=== PATIENT | female | born 1960 | race Caucasian/White ===

== ENCOUNTER 2023-10-15 11:36 | Outpatient (CLI) | payer OTHER, SELFPAY | END 2023-10-15 11:37 | disposition home or self-care (01) | PROVIDERS: PCP Family Medicine; Visit Provider Family Medicine | DX: Z01.818 Encounter for other preprocedural examination (principal); D72.819 Decreased white blood cell count, unspecified; K50.90 Crohn's disease, unspecified, without complications | CPT/HCPCS: 80053; 86803 ==

== ENCOUNTER 2023-11-04 13:42 | Outpatient (CLI) | payer OTHER, SELFPAY | END 2023-11-04 13:43 | disposition home or self-care (01) | PROVIDERS: PCP Family Medicine; Visit Provider Family Medicine | DX: R01.1 Cardiac murmur, unspecified (principal); I35.1 Nonrheumatic aortic (valve) insufficiency; I34.0 Nonrheumatic mitral (valve) insufficiency | CPT/HCPCS: 93306 ==

== ENCOUNTER 2024-07-14 08:30 | Outpatient (CLI) | payer OTHER, SELFPAY | END 2024-07-14 08:31 | disposition home or self-care (01) | LOC: NFLDREF 07-15 09:29 | PROVIDERS: PCP Family Medicine; Referring Provider Family Medicine; Visit Provider Family Medicine | DX: Z01.818 Encounter for other preprocedural examination (principal); Z01.810 Encounter for preprocedural cardiovascular examination; F39 Unspecified mood [affective] disorder; G43.009 Migraine without aura, not intractable, without status migrainosus; R73.03 Prediabetes; E66.01 Morbid (severe) obesity due to excess calories; I67.1 Cerebral aneurysm, nonruptured | CPT/HCPCS: 87086 ==

== ENCOUNTER 2024-08-22 09:02 | Outpatient (CLI) | payer OTHER, SELFPAY | END 2024-08-22 09:03 | disposition home or self-care (01) | LOC: FRMREF 09:04 | PROVIDERS: PCP Family Medicine; Visit Provider Family Medicine | DX: Z48.89 Encounter for other specified surgical aftercare (principal); R73.03 Prediabetes | CPT/HCPCS: 80048 ==

== ENCOUNTER 2025-01-24 11:30 | Outpatient (CLI) | payer OTHER, SELFPAY | END 2025-01-24 11:31 | disposition home or self-care (01) | PROVIDERS: PCP Family Medicine; Visit Provider Family Medicine | DX: Z00.01 Encounter for general adult medical examination with abnormal findings (principal); R73.03 Prediabetes; K50.90 Crohn's disease, unspecified, without complications; F39 Unspecified mood [affective] disorder; Z13.6 Encounter for screening for cardiovascular disorders | CPT/HCPCS: 80053; 80061; 82306; 84443 ==

== ENCOUNTER 2025-02-01 15:11 | Outpatient (CLI) | payer OTHER, SELFPAY ==
--- NOTE | 2025-02-01 15:30 | CRLHL7_ITS ---
For Patients: As a result of the Century Cures Act, medical imaging exams and procedure reports are released immediately into your electronic medical record. You may view this report before your referring provider. If you have questions, please contact your health care provider. DXA BONE MINERAL DENSITY STUDY Current height (in): 63. Weight (lb): 233. Menopause age: 44. Ethnicity: White. 1. Have you had a previous hip or vertebral fracture? No. 2. Have you had any fractures during your adult life which did not result from significant trauma (e.g., auto accident)? No. 3. Did either of your parents have a hip fracture? No. 4. Do you smoke? No. 5. Have you ever taken Glucocorticoids? Yes. 6. Do you have rheumatoid arthritis? No. 7. Do you have secondary osteoporosis? No. 8. Do you drink 3 or more alcoholic drinks per day? No. 9. Are you being treated for osteoporosis? No. 10. Have you ever taken any of the following medications: Actonel, Evista, Fosamax, Miacalcin, Reclast, Boniva, Forteo, HRT (i.e. estrogen/hormone therapy), Protelos, Prolia, Vitamin D, Calcium, other ??? please specify. ANSWER: Yes, Vitamin D and HRT. 11. Do you have any of the following medical conditions: Anorexia or bulimia, asthma or emphysema, end stage renal disease, hyperparathyroidism, any seizure disorders, cancer, inflammatory bowel diseases, hysterectomy, other ??? please specify. ANSWER: Yes, Inflammatory bowel disease and Hysterectomy. 12. What was your maximum height (inches)? 63. 13. Do you perform weight bearing exercise regularly? Yes. 14. Do you regularly consume dairy products? Yes. 15. Do you drink caffeinated beverages? No. 16. At what age did your period start? 11. 17. Are you premenopausal? No. 18. How many full term pregnancies have you had? 3. 19. Have you ever missed your period for more than 6 months in a row (not including or menopause)? No. TECHNIQUE: Bone mineral density study was performed using the [facility]. FINDINGS: The results of the study expressed as bone mineral density (BMD) are as follows: Neck Right: BMD: 0.853 g/cm2. T-score: 0.0. Z-score: 1.6. Total Right: BMD: 1.132 g/cm2. T-score: 1.6. Z-score: 2.8. Radius Left 33%: BMD: 0.570 g/cm2. T-score: -2.1. Z-score: -0.4. IMPRESSION: Normal bone density. Paulo Moses M.D. Body/Diagnostic Radiologist [email or web address] MANINDER/sadie / DW/Dictated by: Paulo Moses MD @ 02/03/2025 12:57:00 PM (Electronically Signed)
== END 2025-02-01 15:12 | disposition home or self-care (01) ==
LOC: RAD 15:12
PROVIDERS: PCP Family Medicine; Visit Provider Family Medicine
DX: Z13.820 Encounter for screening for osteoporosis (principal); R73.03 Prediabetes
CPT/HCPCS: 77080

== ENCOUNTER 2025-03-09 13:34 | Outpatient (CLI) | payer OTHER, SELFPAY ==
[2025-03-09 22:04] LABS: Alanine Aminotransferase* 66 U/L (4-35)
== END 2025-03-09 13:35 | disposition home or self-care (01) ==
LOC: NPINS 13:36
PROVIDERS: PCP Family Medicine; Visit Provider Pharmacist Pharmacotherapy
DX: A31.9 Mycobacterial infection, unspecified (principal)
CPT/HCPCS: 84460

== ENCOUNTER 2025-03-29 09:46 | Outpatient (CLI) | payer OTHER, SELFPAY ==
[2025-03-29 14:07] LABS: Basophils Percent Auto 0.5 % (0.0-3.0); Eosinophils Percent Auto 1.5 % (0.0-7.0); Hematocrit 37.4 % (33.0-51.0); Immature Granulocytes Pct Auto 0.3 %; Lymphocytes Percent Auto 44.8 % (20-44); Mean Corpuscular HGB Conc 32 gm/dL (32-36); Mean Corpuscular Hemoglobin 33 pg (26-34); Mean Corpuscular Volume 104 fL (80-100); Monocytes Percent Auto 6.8 % (0.0-11.0); Neutrophils Percent Auto 46.1 % (42.0-72.0); Platelet Count* 202 K/uL (140-440); RDW Coefficient of Variation % 14.1 % (11.5-15.5); Red Blood Count 3.59 m/uL (4.00-5.20); White Blood Count* 3.95 K/uL (4.50-11.00)
[2025-03-29 14:12] LABS: Slide Review Reflex No
[2025-03-29 14:37] LABS: Albumin* 4.1 g/dL (3.3-5.0); Potassium* 4.5 mmol/L (3.6-5.1)
[2025-03-29 14:40] LABS: Alanine Aminotransferase* 70 U/L (4-35); Alkaline Phosphatase* 63 U/L (40-150); Aspartate Amino Transferase* 55 U/L (12-35); Bilirubin Direct* 0.3 mg/dL (0.0-0.5); Bilirubin Total* 0.6 mg/dL (0.1-1.5); Creatinine* 0.8 mg/dL (0.5-1.5); Estimated Glomerular Filt Rate 82 ml/min; Total Protein* 6.9 g/dL (6.0-8.3)
== END 2025-03-29 09:47 | disposition home or self-care (01) ==
LOC: NPINS 09:47
PROVIDERS: Internal Medicine Infectious Disease; PCP Family Medicine; Visit Provider Physician Assistant
DX: R74.8 Abnormal levels of other serum enzymes (principal); Z79.2 Long term (current) use of antibiotics
CPT/HCPCS: 80076; 82565; 84132; 85025

== ENCOUNTER 2025-04-17 09:48 | Outpatient (CLI) | payer OTHER, SELFPAY ==
[2025-04-17 13:27] LABS: Potassium* 4.5 mmol/L (3.6-5.1)
[2025-04-17 13:30] LABS: Alanine Aminotransferase* 67 U/L (4-35); Alkaline Phosphatase* 61 U/L (40-150); Creatinine* 0.8 mg/dL (0.5-1.5); Estimated Glomerular Filt Rate 82 ml/min
== END 2025-04-17 09:49 | disposition home or self-care (01) ==
LOC: NPINS 09:49
PROVIDERS: Physician Assistant; PCP Family Medicine; Visit Provider Internal Medicine Infectious Disease
DX: R74.8 Abnormal levels of other serum enzymes (principal); A31.9 Mycobacterial infection, unspecified; Z79.2 Long term (current) use of antibiotics
CPT/HCPCS: 82565; 84075; 84132; 84460

== ENCOUNTER 2025-04-27 08:53 | Outpatient (CLI) | payer OTHER, SELFPAY ==
[2025-04-27 13:23] LABS: Alanine Aminotransferase* 66 U/L (4-35); Alkaline Phosphatase* 62 U/L (40-150)
== END 2025-04-27 08:54 | disposition home or self-care (01) ==
LOC: NPINS 08:53
PROVIDERS: Physician Assistant; PCP Family Medicine; Visit Provider Internal Medicine Infectious Disease
DX: A31.9 Mycobacterial infection, unspecified (principal); Z79.2 Long term (current) use of antibiotics
CPT/HCPCS: 84075; 84460

== ENCOUNTER 2025-05-05 09:43 | Outpatient (CLI) | payer OTHER, SELFPAY ==
[2025-05-05 21:28] LABS: Hematocrit* 37.3 % (33.0-51.0); Hemoglobin* 11.8 gm/dL (12.0-16.0); Immature Granulocytes Pct Auto 0.3 %; Mean Corpuscular HGB Conc 32 gm/dL (32-36); Mean Corpuscular Hemoglobin 33 pg (26-34); Mean Corpuscular Volume 104 fL (80-100); RDW Coefficient of Variation % 12.3 % (11.5-15.5); Red Blood Count* 3.60 m/uL (4.00-5.20); White Blood Count* 3.52 K/uL (4.50-11.00)
[2025-05-05 21:29] LABS: Immature Granulocytes Abs Auto 0.00 K/uL (0.00-0.30); Lymphocytes Absolute Auto 1.30 K/uL (0.90-2.90); Slide Review Reflex No
[2025-05-05 21:35] LABS: Potassium* 4.5 mmol/L (3.6-5.1)
[2025-05-05 21:38] LABS: Alanine Aminotransferase* 61 U/L (4-35); Alkaline Phosphatase* 57 U/L (40-150); Creatinine* 0.8 mg/dL (0.5-1.5); Estimated Glomerular Filt Rate 82 ml/min
== END 2025-05-05 09:44 | disposition home or self-care (01) ==
PROVIDERS: PCP Family Medicine; Visit Provider Physician Assistant
DX: A31.9 Mycobacterial infection, unspecified (principal); Z79.2 Long term (current) use of antibiotics
CPT/HCPCS: 82565; 84075; 84132; 84460; 85025

== ENCOUNTER 2025-06-12 09:56 | Outpatient (CLI) | payer OTHER, SELFPAY ==
[2025-06-12 13:44] LABS: Hematocrit* 37.7 % (33.0-51.0); Hemoglobin* 12.2 gm/dL (12.0-16.0); Immature Granulocytes Abs Auto 0.00 K/uL (0.00-0.30); Immature Granulocytes Pct Auto 0.0 %; Mean Corpuscular HGB Conc 32 gm/dL (32-36); Mean Corpuscular Hemoglobin 32 pg (26-34); Mean Corpuscular Volume 100 fL (80-100); Potassium* 4.6 mmol/L (3.6-5.1); RDW Coefficient of Variation % 11.7 % (11.5-15.5); Red Blood Count* 3.77 m/uL (4.00-5.20); White Blood Count* 3.93 K/uL (4.50-11.00)
[2025-06-12 13:47] LABS: Alanine Aminotransferase* 25 U/L (4-35); Alkaline Phosphatase* 62 U/L (40-150); Creatinine* 0.7 mg/dL (0.5-1.5); Estimated Glomerular Filt Rate 96 ml/min; Lymphocytes Absolute Auto 1.70 K/uL (0.90-2.90); Slide Review Reflex No
== END 2025-06-12 09:57 | disposition home or self-care (01) ==
LOC: NPINS 10:03
PROVIDERS: PCP Family Medicine; Visit Provider Physician Assistant
DX: A31.9 Mycobacterial infection, unspecified (principal); Z79.2 Long term (current) use of antibiotics
CPT/HCPCS: 82565; 84075; 84132; 84460; 85025

== ENCOUNTER 2025-08-10 08:48 | Outpatient (CLI) | payer OTHER, SELFPAY | END 2025-08-10 08:49 | disposition home or self-care (01) | PROVIDERS: PCP Family Medicine; Visit Provider Family Medicine | DX: Z01.818 Encounter for other preprocedural examination (principal) | CPT/HCPCS: 80053; 82043; 82570; 87086 ==